=== PATIENT | male | born 1990 | race Caucasian/White ===

== ENCOUNTER 2021-07-16 20:04 | Emergency (ER) | payer OTHER, MEDICAID, SELFPAY ==
[2021-07-16] VITALS (9 sets, daily range): BP systolic 120–140; BP diastolic 69–84; PULSE 104–114; RESP 18; TEMP 36.8; O2SAT 96–100; BMI 22.9
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
[2021-07-16] MEDS: DOXYCYCLINE HYCLATE 100 MG TABLET PO (20:26)
[2021-07-16] MEDS: SODIUM CHLORIDE 0.9% 1,000 ML 1000 ML IV (20:45)
[2021-07-16 20:53] LABS: Add Manual Diff / Slide Review NO; Basophils Absolute Auto 200 /uL (0-100); Basophils Percent Auto 1.7 % (0-2); Eosinophils Absolute Auto 1300 /uL (0-450); Eosinophils Percent Auto 13.2 % (2-4); Hematocrit 37.2 % (41-53); Hemoglobin 12.1 g/dL (13.5-17.5); Lymphocytes Absolute Auto 1400 /uL (1100-4500); Lymphocytes Percent Auto 13.7 % (25-40); Mean Corpuscular HGB Conc 32.6 % (30-36); Mean Corpuscular Hemoglobin 26.9 PG (26-34); Mean Corpuscular Volume 82.5 fL (80-100); Monocytes Absolute Auto 600 /uL (0-900); Monocytes Percent Auto 5.8 % (3-14); Neutrophils Absolute Auto 6600 /uL (1500-7000); Neutrophils Percent Auto 65.6 % (50-75); Platelet Count 313 X10^3/uL (150-400); Red Blood Cell Count 4.51 X10^6/uL (4.5-5.9); Red Cell Distribution Width 15.5 % (11.6-14.8)
[2021-07-16 21:05] LABS: D Dimer 472 ng/mL (<230)
[2021-07-16 21:07] LABS: Alanine Aminotransferase 15 IU/L (<50); Albumin 4.1 g/dL (3.5-5.0); Albumin Globulin Ratio 1.2 (1.0-2.8); Alkaline Phosphatase 108 U/L (38-126); Aspartate Aminotransferase 23 IU/L (17-59); BUN Creatinine Ratio 17.3 (6-22); Bilirubin Total 0.6 mg/dL (0.2-1.3); Blood Urea Nitrogen 17 mg/dL (9-20); Carbon Dioxide 30 mmol/L (22-32); Chloride 104 mmol/L (98-107); Creatine Kinase 132 U/L (55-170); Estimated Glomerular Filt Rate > 60.0 mL/min (>60); Globulin 3.4 g/dL (1.7-4.1); Glucose 136 mg/dL (70-100); HEMOLYSIS < 15 (0-50); Potassium 3.7 mmol/L (3.4-5.1); Sodium 138 mmol/L (137-145); Total Protein 7.5 g/dL (6.3-8.2)
--- NOTE | 2021-07-16 21:09 | DI.CT.S_ITS ---
PROCEDURE: CT ANGIO CHEST PE PROTOCOL INDICATIONS: tachycardia, trauma, leg swelling, elevated dimer TECHNIQUE: After the administration of intravenous contrast, 2 mm thick sections acquired from the pulmonary apices to the posterior costophrenic angles. 3-dimensional maximum intensity projection (MIP) coronal and sagittal reformats were then acquired through the thorax. For radiation dose reduction, the following was used: automated exposure control, adjustment of mA and/or kV according to patient size. COMPARISON: None. FINDINGS: Image quality: Suboptimal opacification of the pulmonary vasculature. Pulmonary arteries: Pulmonary arteries are normal in size, and demonstrate no definite intraluminal filling defects to suggest central pulmonary embolism. Lungs and pleura: Lungs are clear. No pleural effusions or pneumothorax. Central and peripheral airways are patent. Mediastinum: Heart size is normal, without pericardial effusion. No mediastinal or hilar adenopathy. Thoracic aorta is normal in caliber and enhancement. Esophagus is normal in caliber, without hiatal hernia. Bones and chest wall: No suspicious bony lesions. Healed bilateral rib fractures are present. There is a mild chronic appearing T1 compression fracture. Ribs and thoracic spine appear otherwise intact throughout. Thyroid gland demonstrates bilateral nodules, largest of which is in the left lobe posteriorly, measuring roughly 10 mm diameter. No axillary or supraclavicular adenopathy. Abdomen: Visualized upper abdominal solid organs appear normal in the early arterial phase of enhancement. IMPRESSION: 1. Limited examination for pulmonary embolus. No definite pulmonary embolus. 2. Left thyroid nodule, which could be further assessed with nonemergent outpatient follow-up thyroid ultrasound, if clinically indicated. 3. No acute process. Dictated by: Tamara Trujillo M.D. on 07/16/2021 at 21:59 Approved by: Tamara Trujillo M.D. on 07/16/2021 at 22:02
[2021-07-16 21:16] LABS: NT-proBNP (BNP-Adult 18+) 20 pg/mL (<125)
[2021-07-16 21:19] LABS: Troponin I < 0.012 ng/mL (0.01-0.034)
[2021-07-16 21:22] LABS: CKMB % Relative Index 2.3 % (1.5-5.0); Creatine Kinase MB 2.98 ng/mL (<2.37)
--- NOTE | 2021-07-16 22:03 | DI.US.S_ITS ---
PROCEDURE: US PERIPH VENOUS LOW EXTREM BI INDICATIONS: pain, swelling, redness, no injury, elevated D Dimer TECHNIQUE: Real-time imaging, as well as color and pulse Doppler interrogation, were performed of the deep veins of both legs from the inguinal ligament to the popliteal fossa. COMPARISON: None. FINDINGS: Right: The common femoral, femoral and popliteal veins are normally compressible, and free of intraluminal thrombus. Color and pulse Doppler demonstrate normal phasic intravascular flow. There is normal augmentation response to distal compression maneuver. Left: The common femoral, femoral and popliteal veins are normally compressible, and free of intraluminal thrombus. Color and pulse Doppler demonstrate normal phasic intravascular flow. There is normal augmentation response to distal compression maneuver. IMPRESSION: No evidence of bilateral lower extremity DVT. Dictated by: Tamara Trujillo M.D. on 07/17/2021 at 0:03 Approved by: Tamara Trujillo M.D. on 07/17/2021 at 0:03
== END 2021-07-16 23:44 | disposition home or self-care (01) ==
LOC: ED 20:28
PROVIDERS: Emergency Provider Emergency Medicine
DX: L03.115 Cellulitis of right lower limb (principal)
CPT/HCPCS: 36415; 71275; 80053; 82550; 82553; 83880; 84484; 85025; 85379; 87040; 93970; 96360; 96361; 99284; Q9967

== ENCOUNTER 2021-09-01 23:37 | Emergency (ER) | payer OTHER, MEDICAID, SELFPAY ==
[2021-09-01 23:40] VITALS: BP 146/95; PULSE 111; RESP 18; TEMP 36.8; O2SAT 97; BMI 25.2
[2021-09-02 00:11] LABS: Hematocrit 39.1 % (41-53); Hemoglobin 12.8 g/dL (13.5-17.5); Mean Corpuscular HGB Conc 32.8 % (30-36); Mean Corpuscular Hemoglobin 26.7 PG (26-34); Mean Corpuscular Volume 81.3 fL (80-100); Platelet Count 293 X10^3/uL (150-400); Red Blood Cell Count 4.81 X10^6/uL (4.5-5.9); Red Cell Distribution Width 16.2 % (11.6-14.8); White Blood Cell Count 7.7 X10^3/uL (4.5-11.0)
[2021-09-02 00:13] LABS: UR Morphine/Opiate cutoff 300 Positive (Negative); Ur Creatinine Normal (Normal); Ur Specific Gravity Normal (Normal); Urine Amphetamines Positive (Negative); Urine Barbiturates Negative (Negative); Urine Benzodiazepines Negative (Negative); Urine Cocaine Negative (Negative); Urine MDMA Positive (Negative); Urine Methamphetamines Positive (Negative); Urine Phencyclidine Negative (Negative); Urine Tetrahydrocannabinol Positive (Negative); Urine pH Normal (Normal)
[2021-09-02 00:14] LABS: Urine Methadone Negative (Negative); Urine Oxycodone Negative (Negative); Urine Tricyclic Antidepressant Negative (Negative)
[2021-09-02 00:16] LABS: Add Manual Diff / Slide Review YES
[2021-09-02 00:19] LABS: Alanine Aminotransferase 16 IU/L (<50); Albumin 4.4 g/dL (3.5-5.0); Albumin Globulin Ratio 1.3 (1.0-2.8); Alkaline Phosphatase 108 U/L (38-126); Aspartate Aminotransferase 29 IU/L (17-59); BUN Creatinine Ratio 11.9 (6-22); Bilirubin Total 0.4 mg/dL (0.2-1.3); Blood Urea Nitrogen 14 mg/dL (9-20); Calcium 8.8 mg/dL (8.4-10.2); Carbon Dioxide 31 mmol/L (22-32); Chloride 103 mmol/L (98-107); Estimated Glomerular Filt Rate > 60 mL/min (>60); Ethanol (ETOH) < 10 mg/dL; Globulin 3.3 g/dL (1.7-4.1); Glucose 120 mg/dL (70-100); HEMOLYSIS < 15 (0-50); Potassium 4.2 mmol/L (3.4-5.1); Sodium 141 mmol/L (137-145); Total Protein 7.7 g/dL (6.3-8.2)
[2021-09-02 00:32] LABS: COVID19 -Nasal RAPID Negative (Negative)
[2021-09-02 00:38] LABS: Neutrophils Absolute Manual 4004 /uL (3000-5900); Total Cells Counted 100
[2021-09-02 00:39] LABS: RBC Morphology Normal Morphology
--- NOTE | 2021-09-02 01:24 | ED_ITS ---
HPI - Medical Clearance <Chino Esparza DO - Last Filed: 09/02/21 19:31> General Chief complaint: Medical Clearance Stated complaint: Detox Time Seen by Provider: 09/01/21 23:47 Source: patient Mode of arrival: Ambulatory History of Present Illness HPI Narrative: 31-year-old male smoker with history of substance abuse presents requesting medical clearance for placement in to detox. He states that he uses metham phetamines which he smokes daily and wants to quit. He denies the use of other drugs. He denies any suicidal or homicidal ideation. He is here with a family member and requesting help. He denies any prior attempts at detox. He denies chest pain or shortness of breath. He has no fever or chills. He denies nausea, vomiting or diarrhea. Related Information Previous Rx's Medication Instructions Recorded doxycycline hyclate 100 mg tablet 100 mg PO BID #20 tab 07/16/21 Allergies Allergy/AdvReac Type Severity Reaction Status Date / Time No Known Drug Allergies Allergy Verified 09/01/21 23:57 Review of Systems <Chino Esparza DO - Last Filed: 09/02/21 19:31> Review of Systems Narrative: GENERAL: Denies chills, fatigue, malaise, fever, sweats. HEENT: Denies sinus pain, ear pain, sore throat, difficulty swallowing, dizziness. RESPIRATORY: Denies dyspnea, cough, wheezing, hemoptysis, sputum. CARDIOVASCULAR: Denies chest pain, palpitations, orthopnea, edema, GASTROINTESTINAL: Denies nausea, vomiting, abdominal pain, diarrhea, constipation, melena. : Denies dysuria, frequency, incontinence, hematuria, urinary retention. MUSCULOSKELETAL: denies weakness, joint pain, or bony pain SKIN: Denies rash, skin lesions, or other NEUROLOGIC: Denies weakness, headache, numbness, change in speech, confusion, seizures, incoordination. PSYCHIATRIC: No concerning psychosocial issues. 12 point review of systems is negative except for those stated above Patient History <Chino Esparza DO - Last Filed: 09/02/21 19:31> Social History Smoking Status: Current every day smoker Smoking Status: Current every day smoker tobacco type: cigarettes alcohol intake frequency: 0-2 drinks per day Substance Use Type: marijuana and methamphetamine Exam <Chino Esparza DO - Last Filed: 09/02/21 19:31> Narrative Exam Narrative: GENERAL: [31] year old patient appears stated age. Well-developed patient, in mild distress. HEAD: Atraumatic. Normocephalic. EYES: Pupils equal round and reactive. Extraocular motions intact. No scleral icterus. No injection or drainage. ENT: Nose without bleeding, purulent drainage. Throat without erythema, tonsillar hypertrophy or exudate. Airway patent. NECK: Trachea midline. Non tender CARDIOVASCULAR: Tachycardic with regular rhythm without murmurs, gallops, or rubs. RESPIRATORY: Clear to auscultation. Breath sounds equal bilaterally. No wheezes, rales, or rhonchi. GASTROINTESTINAL: Abdomen soft, non-tender, nondistended. EXTREMITIES: No edema or joint tenderness. BACK: Nontender without deformity or crepitance. No flank tenderness. NEURO: AOx3. SKIN: No rash or erythema of visible areas Initial Vital Signs Initial Vital Signs: Vital Signs Temperature 98.3 F 09/01/21 23:40 Pulse Rate 111 H 09/01/21 23:40 Respiratory Rate 18 09/01/21 23:40 Blood Pressure 146/95 H 09/01/21 23:40 Pulse Oximetry 97 09/01/21 23:40 <Aby Solis, DO - Last Filed: 09/02/21 13:06> Initial Vital Signs Initial Vital Signs: Vital Signs Temperature 98.3 F 09/01/21 23:40 Pulse Rate 111 H 09/01/21 23:40 Respiratory Rate 18 09/01/21 23:40 Blood Pressure 146/95 H 09/01/21 23:40 Pulse Oximetry 97 09/01/21 23:40 [facility] - Medical Clearance <Chino Esparza, DO - Last Filed: 09/02/21 19:31> Lab Data Result diagrams: 09/01/21 23:59 09/01/21 23:59 Labs: Lab Results 09/01/21 09/01/21 09/01/21 Range/Units 23:59 23:59 23:59 WBC 7.7 (4.5-11.0) X10^3/uL RBC 4.81 (4.5-5.9) X10^6/uL Hgb 12.8 L (13.5-17.5) g/dL Hct 39.1 L (41-53) % MCV 81.3 (80-100) fL MCH 26.7 (26-34) PG MCHC 32.8 (30-36) % RDW 16.2 H (11.6-14.8) % Plt Count 293 (150-400) X10^3/uL Neut % (Auto) Not Reportable Lymph % (Auto) Not Reportable [place] % (Auto) Not Reportable Eos % (Auto) Not Reportable Baso % (Auto) Not Reportable Lymph # (Auto) Not Reportable [place] # (Auto) Not Reportable Baso # (Auto) Not Reportable Total Counted 100 Seg Neutrophils % 52.0 (38-70) % Lymphocytes % (Manual) 32.0 (25-45) % Monocytes % (Manual) 4.0 (2-11) % Eosinophils % (Manual) 12.0 H (2-4) % Neutrophils # (Manual) 4004 (4996-4004) /uL RBC Morphology Normal morphology Sodium 141 (137-145) mmol/L Potassium 4.2 (3.4-5.1) mmol/L Chloride 103 (98-107) mmol/L Carbon Dioxide 31 (22-32) mmol/L BUN 14 (9-20) mg/dL Creatinine 1.18 (0.66-1.25) mg/dL Estimated GFR > 60 (>60) mL/min BUN/Creatinine Ratio 11.9 (6-22) Glucose 120 H (70-100) mg/dL Calcium 8.8 (8.4-10.2) mg/dL Total Bilirubin 0.4 (0.2-1.3) mg/dL AST 29 (17-59) IU/L ALT 16 (<50) IU/L Alkaline Phosphatase 108 (38-126) U/L Total Protein 7.7 (6.3-8.2) g/dL Albumin 4.4 (3.5-5.0) g/dL Globulin 3.3 (1.7-4.1) g/dL Albumin/Globulin Ratio 1.3 (1.0-2.8) U Opiates 300ng/mL cut Positive H (Negative) Ur Oxycodone Screen Negative (Negative) Urine Methadone Screen Negative (Negative) Ur Barbiturates Screen Negative (Negative) U Tricyclic Antidepress Negative (Negative) Ur Phencyclidine Scrn Negative (Negative) Ur Amphetamines Screen Positive H (Negative) U Methamphetamines Scrn Positive H (Negative) Ur MDMA Scrn (Ecstasy) Positive H (Negative) U Benzodiazepines Scrn Negative (Negative) Urine Cocaine Screen Negative (Negative) U Marijuana (THC) Screen Positive H (Negative) Ethyl Alcohol < 10 ( - 10) mg/dL SARS-CoV-2 (PCR) (Negative) 09/02/21 Range/Units 00:00 WBC (4.5-11.0) X10^3/uL RBC (4.5-5.9) X10^6/uL Hgb (13.5-17.5) g/dL Hct (41-53) % MCV (80-100) fL MCH (26-34) PG MCHC (30-36) % RDW (11.6-14.8) % Plt Count (150-400) X10^3/uL Neut % (Auto) Lymph % (Auto) [place] % (Auto) Eos % (Auto) Baso % (Auto) Lymph # (Auto) [place] # (Auto) Baso # (Auto) Total Counted Seg Neutrophils % (38-70) % Lymphocytes % (Manual) (25-45) % Monocytes % (Manual) (2-11) % Eosinophils % (Manual) (2-4) % Neutrophils # (Manual) (2955-7575) /uL RBC Morphology Sodium (137-145) mmol/L Potassium (3.4-5.1) mmol/L Chloride (98-107) mmol/L Carbon Dioxide (22-32) mmol/L BUN (9-20) mg/dL Creatinine (0.66-1.25) mg/dL Estimated GFR (>60) mL/min BUN/Creatinine Ratio (6-22) Glucose (70-100) mg/dL Calcium (8.4-10.2) mg/dL Total Bilirubin (0.2-1.3) mg/dL AST (17-59) IU/L ALT (<50) IU/L Alkaline Phosphatase (38-126) U/L Total Protein (6.3-8.2) g/dL Albumin (3.5-5.0) g/dL Globulin (1.7-4.1) g/dL Albumin/Globulin Ratio (1.0-2.8) U Opiates 300ng/mL cut (Negative) Ur Oxycodone Screen (Negative) Urine Methadone Screen (Negative) Ur Barbiturates Screen (Negative) U Tricyclic Antidepress (Negative) Ur Phencyclidine Scrn (Negative) Ur Amphetamines Screen (Negative) U Methamphetamines Scrn (Negative) Ur MDMA Scrn (Ecstasy) (Negative) U Benzodiazepines Scrn (Negative) Urine Cocaine Screen (Negative) U Marijuana (THC) Screen (Negative) Ethyl Alcohol ( - 10) mg/dL SARS-CoV-2 (PCR) Negative (Negative) Urine Dip Bedside Urine Glucose Negative Bedside Urine Bilirubin - Negative Bedside Urine Ketone - Negative Urine Specific [place] 1.020 Bedside Urine Occult Blood - Negative Bedside Urine pH 6.5 Bedside Urine Protein - Negative Bedside Urine Urobilinogen - Negative Bedside Urine Nitrite - Negative Bedside Urine Leukocytes - Negative Esterase MDM Narrative Medical decision making narrative: Patient requesting medical clearance and help with placement into a detox facility for substance abuse. His history and physical exam are reassuring, labs are unremarkable. He is medically cleared at 0100 and appropriate for placement into a facility for help with detox <Aby Solis, DO - Last Filed: 09/02/21 13:06> Lab Data Labs: Lab Results 09/01/21 09/01/21 09/01/21 Range/Units 23:59 23:59 23:59 WBC 7.7 (4.5-11.0) X10^3/uL RBC 4.81 (4.5-5.9) X10^6/uL Hgb 12.8 L (13.5-17.5) g/dL Hct 39.1 L (41-53) % MCV 81.3 (80-100) fL MCH 26.7 (26-34) PG MCHC 32.8 (30-36) % RDW 16.2 H (11.6-14.8) % Plt Count 293 (150-400) X10^3/uL Neut % (Auto) Not Reportable Lymph % (Auto) Not Reportable [place] % (Auto) Not Reportable Eos % (Auto) Not Reportable Baso % (Auto) Not Reportable Lymph # (Auto) Not Reportable [place] # (Auto) Not Reportable Baso # (Auto) Not Reportable Total Counted 100 Seg Neutrophils % 52.0 (38-70) % Lymphocytes % (Manual) 32.0 (25-45) % Monocytes % (Manual) 4.0 (2-11) % Eosinophils % (Manual) 12.0 H (2-4) % Neutrophils # (Manual) 4004 (0521-7765) /uL RBC Morphology Normal morphology Sodium 141 (137-145) mmol/L Potassium 4.2 (3.4-5.1) mmol/L Chloride 103 (98-107) mmol/L Carbon Dioxide 31 (22-32) mmol/L BUN 14 (9-20) mg/dL Creatinine 1.18 (0.66-1.25) mg/dL Estimated GFR > 60 (>60) mL/min BUN/Creatinine Ratio 11.9 (6-22) Glucose 120 H (70-100) mg/dL Calcium 8.8 (8.4-10.2) mg/dL Total Bilirubin 0.4 (0.2-1.3) mg/dL AST 29 (17-59) IU/L ALT 16 (<50) IU/L Alkaline Phosphatase 108 (38-126) U/L Total Protein 7.7 (6.3-8.2) g/dL Albumin 4.4 (3.5-5.0) g/dL Globulin 3.3 (1.7-4.1) g/dL Albumin/Globulin Ratio 1.3 (1.0-2.8) U Opiates 300ng/mL cut Positive H (Negative) Ur Oxycodone Screen Negative (Negative) Urine Methadone Screen Negative (Negative) Ur Barbiturates Screen Negative (Negative) U Tricyclic Antidepress Negative (Negative) Ur Phencyclidine Scrn Negative (Negative) Ur Amphetamines Screen Positive H (Negative) U Methamphetamines Scrn Positive H (Negative) Ur MDMA Scrn (Ecstasy) Positive H (Negative) U Benzodiazepines Scrn Negative (Negative) Urine Cocaine Screen Negative (Negative) U Marijuana (THC) Screen Positive H (Negative) Ethyl Alcohol < 10 ( - 10) mg/dL SARS-CoV-2 (PCR) (Negative) 09/02/21 Range/Units 00:00 WBC (4.5-11.0) X10^3/uL RBC (4.5-5.9) X10^6/uL Hgb (13.5-17.5) g/dL Hct (41-53) % MCV (80-100) fL MCH (26-34) PG MCHC (30-36) % RDW (11.6-14.8) % Plt Count (150-400) X10^3/uL Neut % (Auto) Lymph % (Auto) [place] % (Auto) Eos % (Auto) Baso % (Auto) Lymph # (Auto) [place] # (Auto) Baso # (Auto) Total Counted Seg Neutrophils % (38-70) % Lymphocytes % (Manual) (25-45) % Monocytes % (Manual) (2-11) % Eosinophils % (Manual) (2-4) % Neutrophils # (Manual) (4011-8693) /uL RBC Morphology Sodium (137-145) mmol/L Potassium (3.4-5.1) mmol/L Chloride (98-107) mmol/L Carbon Dioxide (22-32) mmol/L BUN (9-20) mg/dL Creatinine (0.66-1.25) mg/dL Estimated GFR (>60) mL/min BUN/Creatinine Ratio (6-22) Glucose (70-100) mg/dL Calcium (8.4-10.2) mg/dL Total Bilirubin (0.2-1.3) mg/dL AST (17-59) IU/L ALT (<50) IU/L Alkaline Phosphatase (38-126) U/L Total Protein (6.3-8.2) g/dL Albumin (3.5-5.0) g/dL Globulin (1.7-4.1) g/dL Albumin/Globulin Ratio (1.0-2.8) U Opiates 300ng/mL cut (Negative) Ur Oxycodone Screen (Negative) Urine Methadone Screen (Negative) Ur Barbiturates Screen (Negative) U Tricyclic Antidepress (Negative) Ur Phencyclidine Scrn (Negative) Ur Amphetamines Screen (Negative) U Methamphetamines Scrn (Negative) Ur MDMA Scrn (Ecstasy) (Negative) U Benzodiazepines Scrn (Negative) Urine Cocaine Screen (Negative) U Marijuana (THC) Screen (Negative) Ethyl Alcohol ( - 10) mg/dL SARS-CoV-2 (PCR) Negative (Negative) Urine Dip Bedside Urine Glucose Negative Bedside Urine Bilirubin - Negative Bedside Urine Ketone - Negative Urine Specific [place] 1.020 Bedside Urine Occult Blood - Negative Bedside Urine pH 6.5 Bedside Urine Protein - Negative Bedside Urine Urobilinogen - Negative Bedside Urine Nitrite - Negative Bedside Urine Leukocytes - Negative Esterase MDM Narrative Medical decision making narrative: Patient requesting medical clearance and help with placement into a detox facility for substance abuse. His history and physical exam are reassuring, labs are unremarkable. He is medically cleared at 0100 and appropriate for placement into a facility for help with detox Patient signed out to myself by Dr. Esparza, patient is currently waiting to go to detox facility he is accepted for 2:30 p.m. this afternoon. Patient is medically cleared. Patient was seen and evaluated independently by myself as well, he has had breakfast this morning. He contacted another facility that he would like to preferentially go to. They possibly have beds available and asked if we can fax his chart to them as well. We did discuss that if they do not accept the patient would he still plan to attend [facility] and he states that he would. Patient already has a ride in place with a good friend. Patient contacted the other facility we sent his chart. They do not have bed availability until tomorrow. Patient is accepted for bed at 2:30 p.m. today with plan for his brother to drive him to [facility] but he states he does not wish to go there any longer and the other facility does not accept patients over the weekend patient chose to leave. He did not take any discharge paperwork w ith him but is medically cleared to be discharged home. Patient's brother was also here and we relayed that he is welcome to return at any time. Patient has the phone number for the other facility so he can continue to contact them for beds as this is his preference. Discharge Plan Departure Patient Disposition: Home Clinical Impression: Methamphetamine abuse Activity Restrictions/Additional Instructions: If you feel you need to go to [facility]. Call had of time ([phone]) to inquire about an available bed. If there are no beds called daily and 9 AM and 9 PM to check on bed availability. Go directly to the crisis/detox center. Prescriptions: No Action doxycycline hyclate 100 mg tablet 100 mg PO BID Qty: 20 0RF Stand Alone Forms: Against Medical Advice
--- NOTE | 2021-09-02 01:27 | PC.NURSE ---
Called [facility], has beds available. Pt did intake interview. Patient was accepted, They would like him to arrive at 1430. Pt aware and agrees with plan.
[2021-09-02 10:05] VITALS: BP 125/70; PULSE 98; RESP 16; TEMP 36.8; O2SAT 99
--- NOTE | 2021-09-02 12:19 | PC.NURSE ---
pt states he wanted to go to [place] for treatment, I explained they said they had a bed, i faxed his info, then MOTH said they don't do intake on sat or sun. i told the pt what had happened he said he didn't want to go to [facility]. he then stated he would call, i thought that was a good idea. he did and they told him they may have a bed tonight. he said he was leaving. he did. his brother said he is probably going to go use and then settle down. i told his brother to pick him up and see if he'd being willing to go to the [place] facility. he said he'd try. pt was calm most of the morning, he rested and then ate breakfast. he'd been quiet in the room chatting with his brother until he walked out at 1150.
== END 2021-09-02 11:50 | disposition home or self-care (01) ==
PROVIDERS: Emergency Medicine; Emergency Provider Emergency Medicine
DX: Z00.8 Encounter for other general examination (principal); F15.129 Other stimulant abuse with intoxication, unspecified; Z20.822 Contact with and (suspected) exposure to COVID-19
CPT/HCPCS: 36415; 80053; 80305; 80320; 81003; 85007; 85025; 87635; 99282; 99283; C9803

== ENCOUNTER → 2022-03-12 10:14 | Outpatient (CLI) | payer OTHER, MEDICAID, SELFPAY ==
--- NOTE | 2022-03-12 | DI.RAD.S_ITS ---
PROCEDURE: LEFT HIP JOINT ASPIRATION FOR CELL COUNT CULTURE COMPARISON: None. INDICATIONS: LEFT HIP JOINT ASPIRATION FOR CELL COUNT CULTURE FINDINGS: The indications, alternatives, benefits, risks, and complications of the procedure were explained to the patient. Written informed consent was obtained and placed in the chart. The patient was placed in appropriate position on the fluoroscopy table, a site was chosen for percutaneous access of the left hip under fluoroscopic guidance. Local anesthetic was administered using a 1 percent lidocaine solution. A spinal needle was then used to access the left hip. Intra-articular location of the needle tip was confirmed by injecting a small amount of contrast, followed by attempted aspiration. Needle was then withdrawn, and a bandage applied to the puncture site. No fluid was able to be aspirated from the left hip joint after confirmation of intra-articular position of the needle. Approximately 10 cc of saline were then instilled into the joint, and saline was then aspirated from the joint and submitted for requested laboratory analysis. IMPRESSION: 1. No fluid was able to be aspirated from the left hip joint after initial intra-articular access. 2. A small volume of saline was instilled into the left hip joint, aspirated, and submitted for requested laboratory studies. Dictated by: Beka Garcia M.D. on 03/12/2022 at 13:35 Approved by: Beka Garcia M.D. on 03/12/2022 at 13:39
[2022-03-12 14:01] LABS: Body Fluid Red Blood Cells 189 /uL; Body Fluid Tot Nucleated Cells 2 /uL
[2022-03-12 14:02] LABS: Body Fluid Appearance CLEAR; Body Fluid Clotted? NO CLOTS PRESENT; Body Fluid Color COLORLESS
== END ==
PROVIDERS: PCP Nurse Practitioner; Referring Provider Physician Assistant Surgical; Visit Provider Physician Assistant Surgical
DX: M87.052 Idiopathic aseptic necrosis of left femur (principal); S73.015A Posterior dislocation of left hip, initial encounter; S32.402A Unspecified fracture of left acetabulum, initial encounter for closed fracture
CPT/HCPCS: 20610; 76000; 77002; 87070; 87075; 87205; 89051